=== PATIENT | female | born 1955 | race Caucasian/White ===

== ENCOUNTER 2021-07-29 07:37 | Day surgery (SDC) | payer MEDICARE ==
[~2021-07-29 07:37] MED LIST: Lidocaine 1%/Sod Bicarbonate in NS 8.4% 1 ML Syringe IDERM PRN; Sodium Chloride 0.9% 10 ML Syringe FLUSH PRN; Sodium Chloride 0.9% 10 ML Syringe FLUSH SCH
[2021-07-29] MEDS: Lactated Ringers 1,000 ML IV SCH ×2 (08:29→13:59)
[2021-07-29] MEDS ORDERED: fentaNYL 100 MCG/2 ML SDV ONE (13:09)
[2021-07-29] MEDS ORDERED: Lidocaine 1% 6 ML ONE (13:09)
[2021-07-29] MEDS ORDERED: Midazolam 1 MG/ML 2 ML SDV ONE (13:09)
[2021-07-29] MEDS ORDERED: Propofol 200 MG/20 ML SDV ONE (13:09)
== END 2021-07-29 14:58 | disposition home or self-care (01) ==
LOC: JD.SDS 07:37
PROVIDERS: ATTEND Surgery
DX: D12.3 Benign neoplasm of transverse colon (principal); D01.3 Carcinoma in situ of anus and anal canal; K64.9 Unspecified hemorrhoids; F17.210 Nicotine dependence, cigarettes, uncomplicated; Z90.49 Acquired absence of other specified parts of digestive tract; Z79.899 Other long term (current) drug therapy
CPT/HCPCS: 36415; 36430; 45380; 85025; 86900; 86901; A9270; J2250; J2704; J3010; J7120; P9034; 00812